=== PATIENT | male | born 1970 | race Caucasian/White ===

== ENCOUNTER 2018-02-27 18:31 | Emergency (ER) | payer SELFPAY ==
[2018-02-27 18:35] VITALS: BP 163/106; PULSE 80; RESP 18; TEMP 36.6; O2SAT 99
--- NOTE | 2018-02-27 19:03 | ED.GENADUL_ITS ---
Discharge Plan Disposition Patient Disposition: HOME Condition: Good Discharge Details Chief Complaint: EarProblem Clinical Impression: Otitis externa Primary Care Provider: Orion Angel ED Provider: Fausto Ramirez Home Meds and New Rx's Prescriptions: No Action No Known Home Meds RF: 0 Discharge Instructions Instructions: Otitis Externa (ED) Additional Instructions: Please take the Ciprodex as directed. Please apply 3-4 drops to left ear twice daily. Please avoid any swimming, submersion underwater, or water in your ear. Please take Tylenol and Motrin as needed for pain. If you notice any worsening of your symptoms, or any new symptoms such as vomiting, diarrhea, fever, chills, shortness of breath, chest pain, numbness, weakness, or fainting , please return immediately to the emergency department for reevaluation. Please follow up with your primary care provider as soon as possible for reassessment and reevaluation. As always, it was a pleasure participating in your medical care today. Referrals: Orion Angel MD [Primary Care Provider] - Medical Decision Making This is a pleasant 47-year-old male who presents with signs and symptoms consistent with otitis externa. He has not been swimming, he denies any significant fluid in his ear. He has no history of red flags of diabetes mellitus. Physical exam demonstrates otitis externa with no evidence of tympanic membrane rupture. Pharmacies are currently closed. We will give the patient Ciprodex here for treatment of otitis externa. Patient's pain is well controlled, no other red flags. No other abnormalities. Vital signs are reassuring. Patient will be discharged home with close follow-up with his PCP. I have extensively reviewed the treatment plan and discharge instructions with the patient. I have addressed all patient concerns at this time. The patient was made aware of what symptoms to monitor for that would warrant a return to the emergency department. Discussed the plan with the patient, they demonstrate verbal understanding and agreement with our assessment and plan at this time. HPI General Date/Time Provider Initiated Documentation: 02/27/18 18:47 . HPI Narrative: This is a 47-year-old male without any significant past medical history who presents today for evaluation of left ear pain for the last 3-4 days. He has noticed a small amount of discharge from the left ear. Hearing is slightly decreased. He admits to a sensation of swelling in the ear. He denies any recent swimming or trauma. He is not a diabetic. He denies any facial pain, fevers or chills. He denies any pain in his head, or any other component. He denies any other complaints at this time he denies any other modifying factors and he denies any pertinent past family, medical, or surgical history. Related Data Home Medications Medication Instructions Recorded Confirmed Unknown [No Known Home Meds] 02/27/18 02/27/18 Allergies Allergy/AdvReac Type Severity Reaction Status Date / Time Penicillins Allergy Unknown Unverified 02/27/18 18:56 General Stated Complaint: EarProblem BIBI: 4 Review of Systems Review of Systems All systems reviewed & are unremarkable except as noted in HPI and below PFSH Social History Smoking/Tobacco Use Status: Never Exam Narrative Exam Narrative: 1.Const: Well-nourished, Well-developed, appearing stated age 2.Eyes: PERRL, no conjunctival injection, and symmetrical lids. 3.ENT: Atraumatic external nose and ears. Moist MM. Neck: Symmetric, trachea midline, No thyromegaly. Patient's left ear demonstrates notable mild erythema and edema in the left external auditory canal, tympanic membrane is alarcon and pearly, no evidence of rupture, discharge, or fluid behind the tympanic membrane. No evidence of bleeding or mass. Right ear is normal. No other significant abnormalities. No mastoid tenderness. Patient demonstrates good movement of cervical neck. There is no nuchal rigidity, no nuchal tenderness. Patient is able to flex the neck without any difficulty or significant pain. Negative Kernig's and Brudzinski sign. 4.CVS: +S1/S2, No murmurs or gallops. Peripheral pulses 2+ and equal in all extremities. Brisk capillary refill in all extremities. 5.RESP: Unlabored respiratory effort. Clear to auscultation bilaterally. No wheezes rales or rhonchi 6.GI: Soft, Nontender/Nondistended, No hepatosplenomegaly. No guarding or rebound. 7.MSK: Normocephalic/Atraumatic, Extremities w/o deformity or ttp No cyanosis or clubbing, Normal movement of all extremities 8.Skin: Warm, Dry. No rashes or lesions. 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 Sensation grossly intact, no focal neurologic deficits. 10.Psych: (AAO) x3. Appropriate mood and affect Course Vital Signs Temperature 36.6 C 02/27/18 18:35 Pulse 80 02/27/18 18:35 Respiratory Rate 18 02/27/18 18:35 Blood Pressure 163/106 H 02/27/18 18:35 Pulse Oximetry 99 02/27/18 18:35 Temperature 36.6 C 02/27/18 18:35 Pulse 80 02/27/18 18:35 Respiratory Rate 18 02/27/18 18:35 Respiratory Effort 02/27/18 18:51 Blood Pressure 163/106 H 02/27/18 18:35 Blood Pressure Position Sitting 02/27/18 18:35 Pulse Oximetry 99 02/27/18 18:35 Oxygen Delivery Method Room Air 02/27/18 18:35 Oxygen Flow Rate 0 02/27/18 18:35 Pain Level 5 02/27/18 18:49 Comment 02/27/18 18:35
[2018-02-27 19:22] VITALS: BP 150/99; PULSE 80; RESP 18; TEMP 36.6; O2SAT 99
== END 2018-02-27 19:22 | disposition home or self-care (01) ==
LOC: ER 19:36
PROVIDERS: Emergency Provider Student in an Organized Health Care Education/Training Program; PCP Internal Medicine
DX: H60.502 Unspecified acute noninfective otitis externa, left ear (principal)
CPT/HCPCS: 99283

== ENCOUNTER 2019-12-06 12:35 | Emergency (ER) | payer MEDICAID, SELFPAY ==
[2019-12-06] VITALS (8 sets, daily range): BP systolic 178–204; BP diastolic 112–120; PULSE 69–86; RESP 15–22; TEMP 36.7; O2SAT 95–99
--- NOTE | 2019-12-06 12:36 | ED.GENADUL_ITS ---
Discharge Plan Disposition Patient Disposition: HOME Condition: Stable Discharge Details Clinical Impression: Hypertension Primary Care Provider: Orion Angel ED Provider: Hamida Fox Home Meds and New Rx's Prescriptions: New hydrochlorothiazide 12.5 mg tablet 12.5 mg PO DAILY Qty: 30 RF: 0 No Action No Known Home Meds RF: 0 Discharge Instructions Instructions: Hypertension (ED) Additional Instructions: Take the blood pressure medication as directed. Be sure to supplement potassium in your diet with tomatoes, garlic, bananas, kale, etc. as hydrochlorothiazide can lower your potassium levels. Be sure to call your primary care doctor's office tomorrow to schedule follow-up appointment for reevaluation. Return immediately to the emergency department if you develop any worsening or new concerning symptoms. 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 BP 200/112. Remainder vitals within normal limits. Patient appears nontoxic a nd has no acute complaints. Nurses note had mentioned headache but pt was clear that he did not have any headache at any time recently. He is adamant that he has had no acute complaints and was surprised that his blood pressure was high at the urgent care today. Patient has no acute complaints of focal deficits, do not see an indication for CT head, EKG or other imaging at this time. Will obtain screening labs and if blood pressure continues to remain high, start on low-dose antihypertensive. 1430 -- screening labs obtained and unremarkable. BP 184/114. Patient given hydrochlorothiazide and BP 170/102. Patient feels good to go home and remains asymptomatic. We will send home with a prescription for hydrochlorothiazide. He is advised to decrease and watch sodium in his diet. Advised to call his PCP for follow-up and continued monitoring of his blood pressure. Usual and customary return precautions given prior to discharge. Medical Records Medical records reviewed: Yes I reviewed the patient's medical records. Lab Data Lab results reviewed: Yes I reviewed the patient's lab results. Labs: Laboratory Tests Range/Units 12/06/19 12/06/19 13:12 13:12 WBC (4.4-10.8) 10^3/uL 7.24 RBC (4.36-5.78) 10^6/uL 5.23 Hgb (13.5-17.5) g/dL 15.2 Hct (40.0-50.0) % 43.7 MCV (80-95) fL 83.6 MCH (27.0-33.0) pg 29.1 MCHC (32.0-36.0) % 34.8 RDW (11.8-14.1) % 12.1 Plt Count (130-400) 10^3/uL 287 MPV (8.0-11.0) fL 10.1 Immature Gran % 0.3 Neutrophils % 61.7 Lymphocytes % 30.7 Monocytes % 6.5 Eosinophils % 0.7 Basophils % 0.1 Nucleated RBC % % 0 Absolute Neutrophils (1.2-6.7) 10^3/uL 4.47 Absolute Lymphocytes (1.2-3.4) 10^3/uL 2.22 Absolute Monocytes (0.1-0.8) 10^3/uL 0.47 Absolute Eosinophils (0.0-0.7) 10^3/uL 0.05 Absolute Basophils (0.0-0.2) 10^3/uL 0.01 Sodium (136-145) mmol/L 139 Potassium (3.5-5.1) mmol/L 3.5 Chloride (98-107) mmol/L 103 Carbon Dioxide (21.0-32.0) mmol/L 27.7 Anion Gap (3-11) mmol/L 8.3 BUN (7-18) mg/dL 13 Creatinine (0.70-1.30) mg/dL 1.06 Estimated GFR/1.73 m2 (mL/min/1.73m2) >= 60.00 Glucose (74-106) mg/dL 91 Calcium (8.5-10.1) mg/dL 9.2 Total Bilirubin (0.2-1.0) mg/dL 0.5 AST (15-37) U/L 25 ALT (16-63) U/L 33 Alkaline Phosphatase (46-116) U/L 85 Total Protein (6.4-8.2) g/dL 7.6 Albumin (3.4-5.0) g/dL 4.1 HPI General Mode of arrival: ambulatory . Date/Time Provider Initiated Documentation: 12/06/19 12:36 . Limitations to Documentation: no limitations . Information obtained by: patient . 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 Patient states he has been told in the past that he has had hypertension but this resolved with a change in his diet. He states he has not seen his primary care doctor for several years. He states he had a tooth ache a few days ago but states this is since resolved. Patient states he has never taken high blood pressure medications. He denies headache, blurry vision, chest pain, shortness of breath, abdominal pain, nausea, vomiting, urinary symptoms, unilateral numbness or weakness. He states his mother and father have a history of hypertension. Related Data Home Medications Medication Instructions Recorded Confirmed Unknown [No Known Home Meds] 02/27/18 02/27/18 hydrochlorothiazide 12.5 mg PO DAILY #30 tab 12/06/19 Previous Rx's Medication Instructions Recorded hydrochlorothiazide 12.5 mg PO DAILY #30 tab 12/06/19 Allergies Allergy/AdvReac Type Severity Reaction Status Date / Time Penicillins Allergy Unknown Unverified 12/06/19 12:52 General BIBI: 4 Review of Systems All systems reviewed & are unremarkable except as noted in HPI and below Constitutional Constitutional: Reports as per HPI, Denies chills and Denies fever(s) Eyes Eyes: Denies blurry vision ENT Ears, Nose, Mouth, and Throat: Denies dizziness, Denies sore throat and Denies throat swelling Cardiovascular Cardiovascular: Denies chest pain and Denies dyspnea Respiratory Respiratory: Denies cough and Denies dyspnea Gastrointestinal Gastrointestinal: Denies abdominal pain, Denies diarrhea and Denies vomiting Genitourinary Genitourinary: Denies hematuria and Denies dysuria Musculoskeletal Musculoskeletal: Denies back pain and Denies numbness Integumentary/Breasts Skin/Breast: Denies lesions and Denies rash Neurologic Neurologic: Denies dizziness, Denies localized weakness and Denies numbness Allergic/Immunologic Allergic/Immunologic: Denies throat swelling [facility] Medical History (Updated 12/06/19 @ 14:13 by Hamida Fox DO) GERD (gastroesophageal reflux disease) Surgical History (Updated 12/06/19 @ 13:05 by Hamida Fox DO) No significant past surgical history Social History Smoking/Tobacco Use Status: Current every day Tobacco Type: smokeless tobacco Alcohol Intake: current Alcohol Intake frequency: a few times a month Drug use: Never Substance use type: does not use Do you feel safe at home: Yes Do you feel safe in your relationship?: Yes Exam Const General: cooperative, healthy appearing and no acute distress HENMT Head: normal to inspection Face and sinus: normal facial exam Eyes General: appearance normal, both eyes and all related structures Pupils: PERRL EOM: EOM intact bilaterally Neck Neck: normal visual inspection and No submandibular swelling Lymphatic: no lymphadenopathy noted Chest Chest: normal inspection of the chest and no tenderness Resp Effort & Inspection: normal respiratory effort and able to speak in complete sentences Auscultation: clear to auscultation bilaterally Cardio Rate: regular rate Rhythm: regular rhythm GI Inspection: normal to inspection Palpation: soft, not firm, not rigid and nontender Auscultation: normal bowel sounds Back/Spine/Pelvis Pelvis: no pain with anterior-posterior compression Skin General skin exam: no rashes or lesions noted Neuro General: patient alert, patient awake and patient oriented x3 Cranial Nerves: CN's II-XI intact bilaterally Cognition: normal cognition Speech: speech normal Motor: muscle tone normal throughout and strength 5/5 throughout Sensory Exam: no sensory deficits noted Extrem General: normal to inspection, full ROM, capillary refill normal, no calf tenderness bilaterally and no edema Psych Appearance: grossly normal Mental Status: mental status grossly normal Speech and Movement: speech and movement normal Affect: normal affect
[2019-12-06 13:21] LABS: Abs Immature Grans 0.02 10^3/uL (0.0-0.06); Absolute Basophil Count 0.01 10^3/uL (0.0-0.2); Absolute Eosinophil Count 0.05 10^3/uL (0.0-0.7); Absolute Lymphocyte Count 2.22 10^3/uL (1.2-3.4); Absolute Monocyte Count 0.47 10^3/uL (0.1-0.8); Absolute Neutrophil Count 4.47 10^3/uL (1.2-6.7); Basophils % 0.1; Eosinophils % 0.7; HCT 43.7 % (40.0-50.0); HGB 15.2 g/dL (13.5-17.5); Immature Grans % 0.3; Lymphocytes % 30.7; MCH 29.1 pg (27.0-33.0); MCHC 34.8 % (32.0-36.0); MCV 83.6 fL (80-95); MPV 10.1 fL (8.0-11.0); Monocytes % 6.5; Neutrophils % 61.7; Nucleated RBC 0 %; Platelet Count 287 10^3/uL (130-400); RBC 5.23 10^6/uL (4.36-5.78); RDW 12.1 % (11.8-14.1); RDW-SD 36.8 fL; WBC 7.24 10^3/uL (4.4-10.8)
[2019-12-06 13:33] LABS: ALT 33 U/L (16-63); AST 25 U/L (15-37); Albumin 4.1 g/dL (3.4-5.0); Alkaline Phosphatase 85 U/L (46-116); Anion Gap 8.3 mmol/L (3-11); BUN 13 mg/dL (7-18); Bilirubin, Total 0.5 mg/dL (0.2-1.0); CO2 27.7 mmol/L (21.0-32.0); CREATININE 1.06 mg/dL (0.70-1.30); Calcium 9.2 mg/dL (8.5-10.1); Chloride 103 mmol/L (98-107); Glucose 91 mg/dL (74-106); Potassium 3.5 mmol/L (3.5-5.1); Sodium 139 mmol/L (136-145); Total Protein 7.6 g/dL (6.4-8.2)
[2019-12-06] MEDS: hydroCHLOROthiazide 25 MG TAB 12.5 MG PO (13:53)
== END 2019-12-06 14:30 | disposition home or self-care (01) ==
PROVIDERS: Emergency Provider Physician Assistant; PCP Internal Medicine
DX: I10 Essential (primary) hypertension (principal)
CPT/HCPCS: 36415; 80053; 99283; 85025

== ENCOUNTER 2020-03-15 10:29 | Outpatient (REF) | payer MEDICAID, SELFPAY ==
[2020-03-15 13:35] LABS: Anion Gap 7.9 mmol/L (3-11); BUN 15 mg/dL (7-18); CO2 29.1 mmol/L (21.0-32.0); CREATININE 1.19 mg/dL (0.70-1.30); Calcium 9.5 mg/dL (8.5-10.1); Chloride 102 mmol/L (98-107); Glucose 133 mg/dL (74-106); Potassium 4.5 mmol/L (3.5-5.1); Sodium 139 mmol/L (136-145)
== END 2020-03-15 10:49 ==
LOC: NCHCN 10:29
PROVIDERS: PCP Internal Medicine; Visit Provider Family Medicine
DX: I10 Essential (primary) hypertension (principal)
CPT/HCPCS: 80048

== ENCOUNTER 2021-11-24 17:41 | Outpatient (REF) | payer MEDICAID, SELFPAY ==
[2021-11-24 18:17] LABS: ALT 44 U/L (16-63); AST 15 U/L (15-37); Albumin 4.2 g/dL (3.4-5.0); Alkaline Phosphatase 84 U/L (46-116); Anion Gap 7.9 mmol/L (3-11); BUN 14 mg/dL (7-18); Bilirubin, Total 0.4 mg/dL (0.2-1.0); CO2 31.1 mmol/L (21.0-32.0); CREATININE 1.2 mg/dL (0.70-1.30); Calcium 9.8 mg/dL (8.5-10.1); Calculated LDL 127 mg/dL (<100); Chloride 102 mmol/L (98-107); Cholesterol 228 mg/dL (<200); Estimated GFR 74.13 (mL/min/1.73m2); Glucose 104 mg/dL (74-106); HDL Cholesterol 38 mg/dL (40-60); Potassium 4.4 mmol/L (3.5-5.1); Sodium 141 mmol/L (136-145); Total Protein 7.8 g/dL (6.4-8.2); Triglyceride 318 mg/dL (<150)
[2021-11-25 17:58] LABS: PSA, Screening 1.1 ng/mL (<=2.5)
== END 2021-11-24 17:42 | disposition home or self-care (01) ==
LOC: NCHCN 17:41
PROVIDERS: PCP Internal Medicine; Visit Provider Family Medicine
DX: I10 Essential (primary) hypertension (principal)
CPT/HCPCS: 80053; 80061; 84153

== ENCOUNTER 2022-04-18 10:36 | Emergency (ER) | payer MEDICAID, SELFPAY ==
[2022-04-18] VITALS (9 sets, daily range): BP systolic 101–134; BP diastolic 62–81; PULSE 57–83; RESP 16–18; TEMP 36.8; O2SAT 98–100
--- NOTE | 2022-04-18 10:37 | ED.GENADUL_ITS ---
Discharge Plan Disposition Patient Disposition: Home Condition: Good Discharge Details Clinical Impression: Calculus of distal left ureter Primary Care Provider: Orion Angel ED Provider: Ubaldo Munoz Meds and New Rx's Prescriptions: Continued lisinopril-hydrochlorothiazide 20-12.5 mg tablet 1 tab PO DAILY omeprazole 20 mg Tablet,Delayed Release (Dr/Ec) 20 mg PO DAILY Discharge Instructions Instructions: Renal Colic (ED) Additional Instructions: You were seen in the ED for hematuria and abdominal pain which are being caused by a small stone in the distal ureter which should pass over the weekend. Your blood count and kidney function are normal. There is no sign of infection. Please strain your urine as we discussed so you know when the stone has passed. Continue to drink plenty of fluids. Use ibuprofen or acetaminophen if needed for pain. Follow-up with PCP next week if you have not passed the stone over the weekend. Return to the ED for any severe uncontrolled pain, fever, persistent vomiting. Medical Decision Making Well-appearing adult male with hematuria, urgency, severe left lower quadrant pain that occurred earlier this morning and has pretty much resolved. Intermittent low back pain for the last few days. Symptoms most consistent with kidney stone which she has never had previously. Currently his pain is under control. IV established. Urinalysis, laboratory studies, renal stone study ordered. Patient's urinalysis with blood only. CBC and chemistries are normal. CT scan with 2 mm distal left ureteral stone at the [facility]. There is some mild hydroureteonephrosis patient has remained asymptomatic here. At 2 mm that should pass without issue likely over the weekend. We did discuss Flomax but given the size of the stone and its position have elected to not begin this medicine. We will also hold off on opiates given how comfortable patient is. Did discuss using ibuprofen and/or acetaminophen for pain. Continue hydration. Strain urine. Follow-up with primary care next week if he does not pass the stone over the weekend. Return to ED for fever, uncontrolled pain, persistent vomiting, other concerns. Lab Data Lab results reviewed: Yes I reviewed the patient's lab results. Lab results narrative: hematuria otherwise normal HPI General Mode of arrival: ambulatory . Date/Time Provider Initiated Documentation: 04/18/22 10:37 . Limitations to Documentation: no limitations . Information obtained by: patient . HPI Narrative: Patient presents to ED with left sided abdominal pain and hematuria with associated urgency this morning. Patient has had intermittent left-sided low back pain which she did not think much of. This morning severe left lower quadrant abdominal pain, hematuria, urinary urgency. Denies any fever. Denies any nausea/vomiting/diarrhea. Denies any testicular pain or swelling. Has never had symptoms similar to this in the past. Denies any headache, chest pain, shortness of breath, other concerning symptoms. Related Data Home Medications Medication Instructions Recorded Confirmed lisinopril 20 1 tab PO DAILY 10/23/20 04/18/22 mg-hydrochlorothiazide 12.5 mg tablet omeprazole 20 mg tablet,delayed 20 mg PO DAILY 04/18/22 04/18/22 release Allergies Allergy/AdvReac Type Severity Reaction Status Date / Time Penicillins Allergy Unknown Unverified 04/18/22 10:42 General BIBI: 3 Review of Systems Narrative: per HPI PFSH All Active Problems (Updated 04/18/22 @ 12:19 by Ubaldo Munoz MD) Calculus of distal left ureter (Acute) Tobacco chew use (Acute) Sebaceous cyst (Acute) Medical History GERD (gastroesophageal reflux disease) Hypertension Surgical History No significant past surgical history Social History Smoking/Tobacco Use Status: Current every day Tobacco Type: smokeless tobacco Smoking risk assessment performed?: Yes Alcohol Intake: current Alcohol Intake frequency: a few times a month Drug use: Never Substance use type: does not use Do you feel safe at home: Yes Do you feel safe in your relationship?: Yes Exam Narrative Exam Narrative: Const: WDWN male in NAD. HEENT: NC/AT. Normal facial exam. Eyes: Normal conjunctiva and sclera. Neck: Supple. Trachea midline. Lungs: Normal respiratory effort. Lungs are clear. Cor: RRR without murmur/gallop. Good radial pulses. GI: Soft. NT/ND. No guarding or rebound. Back: No CVAT Neuro: A+O x 3. Normal speech, mentation, gait. Cranial nerves II - XII grossly intact. No gross motor or sensory deficit. Ext: No C/C/E. Skin: Warm and dry without rash.
[2022-04-18] MEDS: Normal Saline 1,000 ML 1000 ML IV (10:53)
[2022-04-18 10:59] LABS: Abs Immature Grans 0.01 10^3/uL (0.0-0.06); Absolute Eosinophil Count 0.04 10^3/uL (0.0-0.7); Absolute Monocyte Count 0.54 10^3/uL (0.1-0.8); Absolute Neutrophil Count 3.42 10^3/uL (1.2-6.7); Eosinophils % 0.7; HCT 45.5 % (40.0-50.0); HGB 15.6 g/dL (13.5-17.5); Immature Grans % 0.2; MCH 28.5 pg (27.0-33.0); MCHC 34.3 % (32.0-36.0); MCV 83 fL (80-95); MPV 10.2 fL (8.0-11.0); Monocytes % 9.3; Neutrophils % 58.8; Platelet Count 317 10^3/uL (130-400); RBC 5.47 10^6/uL (4.36-5.78); RDW 11.9 % (11.8-14.1); RDW-SD 36.5 fL; WBC 5.81 10^3/uL (4.4-10.8)
[2022-04-18 11:02] LABS: Bilirubin Negative (Negative); Blood Large (Negative); Clarity Cloudy (Clear); Glucose Negative (Negative); Ketones Negative (Negative); Leukocyte Esterase Negative (Negative); Nitrite Negative (Negative); Specific Gravity 1.015 (1.005-1.025); Urobilinogen 0.2 EU/dL (Up TO 0.2)
[2022-04-18 11:07] LABS: Anion Gap 5.5 mmol/L (3-11); BUN 13 mg/dL (7-18); CO2 30.5 mmol/L (21.0-32.0); CREATININE 1.1 mg/dL (0.70-1.30); Calcium 9.6 mg/dL (8.5-10.1); Chloride 104 mmol/L (98-107); Estimated GFR 82.29 (mL/min/1.73m2); Glucose 106 mg/dL (74-106); Potassium 3.7 mmol/L (3.5-5.1); Sodium 140 mmol/L (136-145)
[2022-04-18 11:14] LABS: Bacteria Negative HPF (Negative); C & S Indicated? No; Casts Negative LPF (Negative); Crystals Negative HPF (Negative); Epithelial Cells Negative HPF (Negative); Mucus Trace (Negative); RBC >50 HPF (0-2); WBC Negative HPF (0-5)
--- NOTE | 2022-04-18 11:17 | DI.CT_ITS ---
Exam(s) CT RENAL COLIC WO EXAM: CT RENAL COLIC WO CLINICAL HISTORY: hematuria/left back pain. TECHNIQUE: Imaging Protocol: Axial computed tomography images with coronal and sagittal reformatted images were created and reviewed CONTRAST MATERIAL: Intravenous: none Oral: None COMPARISON: No exams were available for comparison FINDINGS: VISUALIZED LUNG BASES: No nodules nor pleural effusions evident. ABDOMEN: There is no ascites. LIVER: There are no obvious focal hepatic lesions evident of this noninfused study. GALLBLADDER/BILIARY: No obvious gallbladder pathology. CBD is not dilated. PANCREAS: No evidence of pancreatic mass nor dilatation of the pancreatic duct. SPLEEN: Spleen is not enlarged. No obvious intrasplenic lesions. ADRENALS: There are no significant adrenal masses. KIDNEYS:Mild left hydronephrosis and hydroureter caused by a 2 millimeter calculus at the left ureter ovesical junction. Urinary bladder unremarkable. Right ureter unremarkable. There are no remaining calculi in either kidney. No renal masses. No cysts.. ABDOMINAL AORTA: Abdominal aorta is not enlarged. LYMPH NODES: There is no retroperitoneal nor paraaortic adenopathy. ABDOMINAL WALL: No evidence of significant anterior abdominal wall nor inguinal hernia. GI: There is no evidence of bowel obstruction, free air, nor abscess. PELVIS: LYMPH NODES: There is no intrapelvic nor inguinal adenopathy. GI: No evidence of appendicitis.No evidence of sigmoid diverticulitis. URINARY BLADDER: No calculi nor obvious masses evident REPRODUCTIVE: Prostate size upper normal OSSEOUS: Focal sclerotic density in the right iliac bone is most probably a benign bone island. Bilateral pars defects at L5 noted. Mild anterolisthesis L5 upon S1 approximately 2 millimeters. No fractures. IMPRESSION: 1. Main finding here is a 2 millimeter calculus in the lower left ureter at the ureterovesical juncti on with mild dilatation of the left collecting system above this level. No other focal findings in t he kidneys. No remaining calculi in either kidney. 2. Urinary bladder appears unremarkable. 3. Mild anterolisthesis L5 upon S1 due to bilateral L5 pars defects. RADIATION DOSE DELIVERED: 887.19mGy.cm Total DLP DATA REPOSITORY: All CT scans at this facility are submitted to the National Radiology Data Registry (NRDR) Dose Index Registry (DIR) with the [employer] (ACR). RADIATION OPTIMIZATION: All CT scans at this facility use at least one of these dose optimization te chniques: automated exposure control; mA and/or kV adjustment per patient size (includes targeted exa ms where dose is matched to clinical indication); or iterative reconstruction.
--- NOTE | 2022-04-18 11:54 | DI.VRAD_ITS ---
PROCEDURE INFORMATION: Exam: CT Abdomen And Pelvis Without Contrast Exam date and time: 04/18/2022 11:21 AM Age: 51 years old Clinical indication: Other: Hematuria; Abdominal pain; Flank; Left TECHNIQUE: Imaging protocol: Computed tomography of the abdomen and pelvis without contrast. COMPARISON: No relevant prior studies available. FINDINGS: Liver: 10 mm simple cyst posterior right lobe of the liver Gallbladder and bile ducts: Normal. No calcified stones. No ductal dilation. Pancreas: Normal. No ductal dilation. Spleen: Normal. No splenomegaly. Adrenal glands: Normal. No mass. Kidneys and ureters: Two millimeter distal LEFT ureteral calculus causes dilatation of LEFT collecting system and LEFT ureter. The LEFT kidney is edematous . Stomach and bowel: Unremarkable. No obstruction. No mucosal thickening. Appendix: No evidence of appendicitis. Intraperitoneal space: Unremarkable. No free air. No significant fluid collection. Vasculature: Unremarkable. No abdominal aortic aneurysm. Lymph nodes: Unremarkable. No enlarged lymph nodes. Urinary bladder: Unremarkable as visualized. Reproductive: Unremarkable as visualized. Bones/joints: Bilateral spondylolysis defect of the L5-S1 level, with no evidence of spondylolisthesis.. Soft tissues: Unremarkable. IMPRESSION: 1. Two millimeter distal LEFT ureteral calculus causes dilatation of LEFT collecting system and LEFT ureter. The LEFT kidney is edematous . 2. 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 Dictated and Authenticated by: Matt Lester MD. Ordering:IRINEO Conner MD
== END 2022-04-18 12:29 | disposition home or self-care (01) ==
PROVIDERS: Emergency Provider Emergency Medicine; PCP Internal Medicine
DX: N13.2 Hydronephrosis with renal and ureteral calculous obstruction (principal); I10 Essential (primary) hypertension; Z79.899 Other long term (current) drug therapy
CPT/HCPCS: 36415; 80048; 96360; 99284; 74176; 81003; 81015; 85025

== ENCOUNTER 2022-08-10 09:01 | Day surgery (SDC) | payer MEDICAID, SELFPAY ==
--- NOTE | 2022-08-09 17:51 | W.PM.DSUDISC ---
Date of service: 08/10/22 Time of Service: 12:18 Discharge Plan Disposition Patient Disposition: Home Condition: Good Discharge Details Reason For Visit: Screening colonoscopy Attending Provider: Darius Sarkar Primary Care Provider: Susie Lewis Home Meds and New Rx's Prescriptions: Continued lisinopril-hydrochlorothiazide 20-12.5 mg tablet 1 tab PO DAILY omeprazole 20 mg Tablet,Delayed Release (Dr/Ec) 20 mg PO DAILY Discontinued bisacodyl [Dulcolax (bisacodyl)] 5 mg tablet,delayed release (DR/EC) 5 mg PO ONCE Qty: 4 0RF Rx Instructions: Take per colonoscopy instructions provided by ordering providers office polyethylene glycol 3350 17 gram/dose powder 17 g PO ONCE Qty: 238 0RF Rx Instructions: Take per colonoscopy instructions provided by ordering providers office Discharge Instructions Additional Instructions: Elle, we were able to complete your colonoscopy today without any difficulty. You have some evidence of some old mild internal hemorrhoids. Otherwise, your colonoscopy was totally normal. I saw no evidence of any tumors or polyps. You should give consideration to another colonoscopy in 10 years 1. If tolerated, consume a soft, low fiber diet for 1-2 days. 2. Do not drive, drink alcohol, operate machinery, make critical decisions, or do activities that require coordination or balance for 24 hours. 3. Because air was put into your colon during the procedure, expelling air from your rectum (passing gas or farting) is normal. 4. You may not have a bowel movement for 1-3 days because of the colonoscopy prep. This is normal. 5. Go directly to the emergency room if you notice any of the following: Develop chills (warm to touch), or if you have a thermometer and your temperature is above 101 Difficulty breathing or difficultly swallowing Persistent vomiting Severe abdominal pain, other than gas cramps Severe chest pain Black, tarry stools Any bleeding ? exceeding one tablespoon 6. Call your physician if the site where your intravenous was started becomes red, swollen, painful, and warm to touch. 7. Your physician has reviewed your pre-procedure medications. Please continue to take those medications as previously ordered. You will be given specific information/education regarding any changes to your medications before leaving. Activity:: Activity as Tolerated Diet:: As Tolerated Discharge Orders Discharge Orders: Discharge Order (Routine); Ordered 08/09/22 Ordered By: Darius Sarkar DS: Diagnosis Discharge Diagnosis (1) Screen for colon cancer: Status: Acute Asessment and Plan: Normal screening colonoscopy, I recommend a follow-up in 10 years
--- NOTE | 2022-08-09 17:53 | W.COLOREPORT ---
Date of service: 08/10/22 Time of Service: 12:19 Colonoscopy Report Date of procedure: 08/10/22 Pre-op diagnosis general: Screening colonoscopy Post-op diagnosis procedure note: same Procedure: Colonoscopy Surgeon: Darius Sarkar Anesthesia Type: General:No Airway Estimated blood loss (mL): 0 Pathology: none sent Complications: None Disposition: same day Indications: Fadi is a 52 year old man who needs his kal screening colonocsopy Prep: Miralax/Dulcolax Procedure Start Time: 11:54 Procedure End Time: 12:05 Retraction Time: 6 Findings: Normal screening colonoscopy Procedure Description: After the induction of monitored anesthetic care, and with the patient in left lateral decubitus position, I began by performing an external anorectal exam.? Perineum and skin were normal, as was the anal verge.? There was no evidence of external hemorrhoids.? Next, I performed a digital rectal exam.? I did not appreciate any abnormal findings.? Next, I advanced a colonoscope into the rectal vault.? I performed retroflexion.? There appeared to be some old fibrosed internal hemorrhoids..? Using insufflation, I then advanced the colonoscope beyond the rectal folds and into the sigmoid colon before advancing towards the cecum.? The quality of the prep was excellent.? The scope was noted to be in the cecum by identification of the ileocecal valve and appendiceal orifice.? I then began withdrawing the colonoscope using repeated irrigation as necessary for full evaluation of the colonic mucosa. ?Once the scope was withdrawn to the level of the rectum, great care was taken to examine portions of the rectal folds.? I saw no evidence of any tumors or polyps or any other abnormalities along the length of the colon. Finally, the scope was withdrawn and the patient was brought to the same-day surgery recovery unit as the anesthetic wore off. ?The findings and instructions were shared with the patient prior to discharge.
[2022-08-10 09:45] VITALS: BP 122/83; PULSE 73; RESP 16; TEMP 36.6; O2SAT 95
[2022-08-10] MEDS: Lactated Ringers 1,000 ML 80 ML IV (10:15)
--- NOTE | 2022-08-10 10:36 | W.ANESPRE ---
General Info Date of Service Date Performed: 08/10/22 Height: 5 ft 6 in Weight: 82.3 kg Body Mass Index (BMI): 29.2 Surgical Procedure: Operation Date: 08/10/22 11:20 Proposed Procedure Side Surgeon p Senia Sarkar MD Meds Allergies and Home Medications Allergies Allergy/AdvReac Type Severity Reaction Status Date / Time Penicillins Allergy Unknown Unverified 08/10/22 09:50 Home Medication Medication Instructions Recorded lisinopril 20 1 tab PO DAILY 10/23/20 mg-hydrochlorothiazide 12.5 mg tablet omeprazole 20 mg tablet,delayed 20 mg PO DAILY 04/18/22 release Current Visit Medications: Current Medications Generic Name Dose Route Start Last Admin Trade Name Freq PRN Reason Stop Dose Admin Hyoscyamine Sulfate 0.125 mg 08/09/22 17:55 Hyoscyamine 0.125 Mg Sl/Oral/Chew SL 09/08/22 17:54 DIRECTED PRN Ringer's Solution 1,000 mls @ 80 mls/hr 08/10/22 06:00 08/10/22 10:15 IV 09/06/22 23:59 80 mls/hr INFUSION PACHECO Administration IV Miscellaneous Supplies 1 each 08/10/22 06:00 Iv Access IV 09/06/22 23:59 DIRECTED PACHECO Ondansetron HCl 4 mg 08/09/22 17:55 Ondansetron 4 Mg/2 Ml Vial IVP 09/08/22 17:54 Q4H PRN PRN Nausea / Vomiting Sodium Chloride 0 ml 08/10/22 06:00 Normal Saline Flush 10 Ml Syr IV 09/06/22 23:59 PRN PRN Sodium Chloride 0 ml 08/10/22 06:00 Normal Saline 10 Ml Vial IJ 09/06/22 23:59 DIRECTED PRN Sterile Water 0 ml 08/10/22 06:00 Water,Injection,Sterile 10 Ml Vial IJ 09/06/22 23:59 DIRECTED PRN PFSH Active Problems Active Problems: Problem Status Onset Code Screen for colon cancer Z12.11 Tobacco chew use Z72.0 Sebaceous cyst L72.3 Medical History Medical History GERD (gastroesophageal reflux disease) Hypertension Medical History Comments:: Pt has no anesthesia history Surgical History Surgical History No significant past surgical history Tobacco Smoking/Tobacco Use Status: Current every day Tobacco Type: smokeless tobacco Alcohol Alcohol Intake: current Alcohol intake frequency: a few times a month Substance Use Substance use: Never Substance use type: does not use Vital Signs and Lab Results Vital Signs Most Recent Vital Signs in EMR: Most Recent Vital Signs Temp Pulse Resp BP Pulse Ox 36.6 C 73 16 122/83 95 08/10/22 09:45 08/10/22 09:45 08/10/22 09:45 08/10/22 09:45 08/10/22 09:45 Lab Results Blood Type / Crossmatch: No Data to Display Complete Blood Count: No Data to Display Complete Metabolic Panel: No Data to Display Liver Function Panel: No Data to Display Coagulation Panel: No Data to Display Cardiac Panel: No Data to Display Arterial Blood Gas: No Data to Display Venous Blood Gas: No Data to Display Pancreas Panel: No Data to Display Thyroid Panel: No Data to Display Infectious Disease: No Data to Display Blood Cultures: No Data to Display Toxicology Panel: No Data to Display Anesthesia Assessment and Plan Anesthesia History Personal History: Unknown Anesthesia History Family History: No Family History of Anesthesia Complications Exercise Tolerance Exercise Tolerance: Metabolic Equivalents>4 Pertinent Negatives Pertinent Negatives: No Symptoms of GERD, No Major Cardiovascular Symptoms or Complaints and No Major Pulmonary Symptoms or Complaints Cardiac & Pulmonary Exam Cardiac Exam: Normal S1/S2 Heart Sounds Pulmonary Exam: Clear Bilateral Breath Sounds Implantable Cardiac Device Does patient have a Pacemaker or an ICD?: No Airway Exam Known Difficult Airway: No Mallampati Class: 2 Mouth Opening: Normal (> 3cm) Thyromental Distance: Greater than 3 cm Facial Hair: Full Grijalva Neck Range of Motion: Full ROM Neck Circumference: Normal Teeth Condition: Normal Dentition (Chipped front teeth, center) ASA Classification ASA Score: ASA 2 Emergency Case?: No NPO Status NPO Status: NPO Clears >2 hours, Solids >8 hours Anesthesia Plan Resuscitation Status: Full Code Anesthesia Technique: General Anesthesia Airway Planned: Natural Airway Monitors Used: Standard Monitors
[2022-08-10 10:39] VITALS: BMI 29.2
[2022-08-10 12:10] VITALS: BP 127/97; PULSE 76; RESP 17; TEMP 37; O2SAT 97
--- NOTE | 2022-08-10 12:55 | W.ANESPOSTOP ---
Postoperative Evaluation Date, Time and Location Date Performed: 08/10/22 Time Performed: 12:55 Patient Location: Day Surgery Unit Vital Signs Most Recent Imported Vital Signs: Most Recent Vital Signs Temp Pulse Resp BP Pulse Ox 37.0 C 76 17 127/97 H 97 08/10/22 12:10 08/10/22 12:10 08/10/22 12:10 08/10/22 12:10 08/10/22 12:10 Pain Score Most Recent Pain Score: Most Recent Pain Score Pain Level 0 08/10/22 12:10 Assessment Mental Status: Awake (Alert & Oriented to Patient Baseline) Airway and Respiratory Function: Patent airway with normal (patient baseline) respiratory exam Cardiovascular Function: Hemodynamically Stable Hydration Status: Adequately Hydrated Nausea & Vomiting: No Nausea or Vomiting Pain: Pt. Denies Any Pain Peripheral Nerve Block: Patient did not receive a nerve block
[2022-08-10 13:30] VITALS: BP 122/90; PULSE 66; RESP 17; TEMP 36.5; O2SAT 96
== END 2022-08-10 12:45 | disposition home or self-care (01) ==
PROVIDERS: PCP Family Medicine; Visit Provider Surgery
PROC: 0DJD8ZZ Inspection of Lower Intestinal Tract, Via Natural or Artificial Opening Endoscopic (ICD-10-PCS; CPT 45378; principal; 2022-08-10 11:15)
DX: Z12.11 Encounter for screening for malignant neoplasm of colon (principal); I10 Essential (primary) hypertension; K21.9 Gastro-esophageal reflux disease without esophagitis
CPT/HCPCS: 45378; J2704

== ENCOUNTER 2022-11-23 08:55 | Outpatient (REF) | payer MEDICAID, SELFPAY ==
[2022-11-23 15:41] LABS: ALT 35 U/L (16-63); AST 13 U/L (15-37); Alkaline Phosphatase 88 U/L (46-116); BUN 18 mg/dL (7-18); Bilirubin, Total 0.7 mg/dL (0.2-1.0); CREATININE 1.3 mg/dL (0.70-1.30); Calcium 9.9 mg/dL (8.5-10.1); Calculated LDL 137 mg/dL (<100); Chloride 101 mmol/L (98-107); Cholesterol 219 mg/dL (<200); Estimated GFR 66.93 (mL/min/1.73m2); Glucose 111 mg/dL (74-106); HDL Cholesterol 38 mg/dL (40-60); Potassium 4.1 mmol/L (3.5-5.1); Sodium 140 mmol/L (136-145); Total Protein 7.2 g/dL (6.4-8.2); Triglyceride 221 mg/dL (<150)
[2022-11-23 23:11] LABS: PSA, Screening 1.4 ng/mL (<=3.5)
== END 2022-11-23 08:56 | disposition home or self-care (01) ==
LOC: NCHCN 08:55
PROVIDERS: PCP Family Medicine; Visit Provider Family Medicine
DX: I10 Essential (primary) hypertension (principal); Z12.5 Encounter for screening for malignant neoplasm of prostate
CPT/HCPCS: 80053; 80061; 84153

== ENCOUNTER 2023-11-29 11:37 | Outpatient (REF) | payer MEDICAID, SELFPAY ==
[2023-11-29 15:23] LABS: ALT 40 U/L (16-63); AST 21 U/L (15-37); Albumin 4.3 g/dL (3.4-5.0); Alkaline Phosphatase 87 U/L (46-116); Anion Gap 7.1 mmol/L (3-11); BUN 18 mg/dL (7-18); Bilirubin, Total 0.75 mg/dL (0.2-1.0); CO2 30.9 mmol/L (21.0-32.0); CREATININE 1.2 mg/dL (0.70-1.30); Calculated LDL 139 mg/dL (<100); Chloride 102 mmol/L (98-107); Cholesterol 208 mg/dL (<200); Estimated GFR 73.22 (mL/min/1.73m2); Glucose 101 mg/dL (74-106); HDL Cholesterol 38 mg/dL (40-60); Potassium 4.8 mmol/L (3.5-5.1); Sodium 140 mmol/L (136-145); Total Protein 7.5 g/dL (6.4-8.2); Triglyceride 157 mg/dL (<150)
== END 2023-11-29 11:38 | disposition home or self-care (01) ==
LOC: NCHCN 11:37
PROVIDERS: PCP Family Medicine; Visit Provider Family Medicine
DX: I10 Essential (primary) hypertension (principal); Z00.00 Encounter for general adult medical examination without abnormal findings
CPT/HCPCS: 80053; 80061; 82306

== ENCOUNTER 2024-11-29 17:07 | Outpatient (REF) | payer MEDICAID, SELFPAY ==
[2024-11-29 15:07] LABS: ALT 40 U/L (16-63); AST 17 U/L (15-37); Albumin 4.0 g/dL (3.4-5.0); Alkaline Phosphatase 87 U/L (46-116); Anion Gap 6.8 mmol/L (3-11); BUN 14 mg/dL (7-18); Bilirubin, Total 0.8 mg/dL (0.2-1.0); CO2 30.2 mmol/L (21.0-32.0); Calcium 9.9 mg/dL (8.5-10.1); Calculated LDL 133 mg/dL (<100); Chloride 103 mmol/L (98-107); Cholesterol 209 mg/dL (<200); Estimated GFR 72.76 (mL/min/1.73m2); Glucose 112 mg/dL (74-106); HDL Cholesterol 32 mg/dL (>or=40); Potassium 4.2 mmol/L (3.5-5.1); Sodium 140 mmol/L (136-145); Total Protein 7.2 g/dL (6.4-8.2); Triglyceride 224 mg/dL (<150); Vitamin D 25 Total 29 ng/mL (30-100)
== END 2024-11-29 17:08 | disposition home or self-care (01) ==
LOC: NCHCN 17:07
PROVIDERS: PCP Family Medicine; Visit Provider Family Medicine
DX: I10 Essential (primary) hypertension (principal); E55.9 Vitamin D deficiency, unspecified; Z00.00 Encounter for general adult medical examination without abnormal findings
CPT/HCPCS: 80053; 80061; 82306